=== PATIENT | female | born 1970 | race Native Hawaiian/Other Pacific Islander ===

== ENCOUNTER 2021-04-07 21:54 | Emergency (ER) | payer OTHER ==
[~2021-04-07] VITALS: Ht 157.5 cm; Wt 72.6 kg
[2021-04-07 22:31] VITALS: BP 120/72; TEMP 98.5
== END 2021-04-07 22:35 | disposition home or self-care (01) ==
LOC: ED 21:54
DX: S00.83XA Contusion of other part of head, initial encounter (principal); Y04.2XXA Assault by strike against or bumped into by another person, initial encounter; Y92.238 Other place in hospital as the place of occurrence of the external cause
CPT/HCPCS: 99282